=== PATIENT | female | born 1970 | race Caucasian/White ===

== ENCOUNTER 2020-09-24 06:28 | Day surgery (SDC) | payer MEDICAID, SELFPAY ==
[~2020-09-24] VITALS: Ht 165.1 cm; Wt 68.0 kg
[2020-09-24 07:11] LABS: HCG,QUAL RESULT NEGATIVE (NEGATIVE)
[2020-09-24] MEDS ORDERED: SIMETHICONE 40 MG/0.6 ML ML ONE (07:13)
[2020-09-24] MEDS ORDERED: MEPERIDINE 100 MG INJ. 100 MG/ML VIAL ONE (07:13)
[2020-09-24] MEDS ORDERED: MIDAZOLAM HCL 5 MG/5 ML VIAL ONE (07:14)
[2020-09-24 16:43] VITALS: BP_SYST 74
== END 2020-09-24 09:35 | disposition home or self-care (01) ==
LOC: SMU 06:28 → SDS 06:28
PROVIDERS: ATTEND Internal Medicine Gastroenterology
DX: R10.13 Epigastric pain (principal); K29.50 Unspecified chronic gastritis without bleeding; D64.9 Anemia, unspecified; Z20.822 Contact with and (suspected) exposure to COVID-19; Z79.899 Other long term (current) drug therapy
CPT/HCPCS: 36415; 43239; 84703; 87081; 88305; 88312; 88313; 99152; G0378; J2175; J2250; U0003